=== PATIENT | male | born 1980 | race Caucasian/White ===

== ENCOUNTER 2016-10-04 23:58 | Inpatient (IN) | payer OTHER ==
--- NOTE | ~2016-10-04 | HP ---
Unit #: [id number] #: [id number] Patient: JESUS BRINK [id number] [place] [address] [id number] MR#: [id number] NAME: JESUS BRINK. ROOM: P205 Age: 35 Sex: M Admission Date: 10/04/2016 : 1980 Attending Physician: Octaviano Islas M.D. Admitting Physician: Octaviano Islas M.D. Primary Care Physician: Generic Doctor Not In System HISTORY AND PHYSICAL HISTORY OF PRESENT ILLNESS Jesus is a 35 year old admitted to [address] [place] [address] with depression, increased anxiety and verbalizing wanting to hurt himself. PAST MEDICAL HISTORY Noting significant. PAST SURGICAL HISTORY Nothing reported. ALLERGIES No known drug allergies. SOCIAL HISTORY Smokes an occasional cigar, drinks whiskey frequently but not daily. Admits to using marijuana daily. FAMILY HISTORY Medically noncontributory. REVIEW OF SYSTEMS CONSTITUTIONAL: No fever or chills. HEENT: Denies any sore throat, ear pain or runny nose. CARDIOVASCULAR: Denies chest pain, irregular heart rhythm or palpitations. CHEST: Denies shortness of breath or cough. No hemoptysis. GASTROINTESTINAL: Denies nausea, vomiting, diarrhea or chronic constipation. ENDOCRINE: Denies history of increased thirst or urination. No recent significant weight loss or gain. GENITOURINARY: Denies dysuria, frequency, or hematuria. SKIN: Denies any rashes. HEMATOLOGIC: Denies history of increased bleeding or bruising. MUSCULOSKELETAL: Denies any hot, swollen joints. No generalized muscle pain. NEUROLOGIC: Denies problems with vision or speech. No frequent, severe headaches. No numbness, tingling or weakness in any extremities. Denies loss of bladder or bowel control. CURRENT MEDICATIONS 1. Lexapro 10 mg daily Unit #: [id number] #: [id number] Patient: JESUS BRINK 2. Vistaril 50 mg q.6 h. p.r.n. 3. Milk of Magnesia p.r.n. 4. Maalox p.r.n. 5. Tylenol p.r.n. PHYSICAL EXAMINATION GENERAL: Alert, well-nourished, in no apparent distress. VITAL SIGNS: Blood pressure 126/70, heart rate 64, respirations 16, temperature 98.6. WEIGHT: 200 pounds. HEIGHT: 6'0". SKIN: Warm and dry without rash or lesion. HEENT: Normocephalic. TMs not viewed. Oral and nasal passages clear. Conjunctivae clear. Pupils equal, round and reactive to light and accommodation. Extraocular movements intact. NECK: Supple without lymphadenopathy or thyromegaly. HEART: Regular rate and rhythm without murmur. LUNGS: Clear. ABDOMEN: Soft, nontender. : Not done. EXTREMITIES: No evidence of cyanosis, clubbing or edema. Moves all extremities without focal deficit. NEUROLOGICAL: Grossly within normal limits. Cranial Nerves: II: Visual diggs are intact. III, IV AND : Extraocular movements are intact. Pupils are equal, round and reactive to light. V: Facial sensation is grossly normal. VII: Facial movements and expression are normal. VIII: Auditory acuity grossly intact. IX, X: Uvula is midline. Phonation is normal. XI: Patient shrugs shoulders and turns head normally. XII: Tongue protrudes in the midline. Sensory and Motor Function: Sensory and motor sensation is grossly normal. Motor: moves all extremities well. Coordination: Gait is normal. Deep Tendon Reflexes: Intact. IMPRESSION Psychiatric admission RECOMMENDATIONS PSYCHIATRIC: Per psychiatrist. MEDICAL: I see no contraindications to participating in facility's activities. MEDICAL PROGNOSIS Good. MEDICAL CONDITION Stable. Dictated by... Linda Chang P.A.-C. for Diaz Amor/lindy Unit #: [id number] #: [id number] Patient: JESUS BRINK TD: 10/06/2016 03:32 JOB #: [id number] HISTORY AND PHYSICAL X Linda Chang X HISTORY AND PHYSICAL
--- NOTE | ~2016-10-04 | PN ---
Unit #: [id number] #: [id number] Patient: HAKAN BRINK [id number] [facility] [address] [place] [address] [id number] MR#: [id number] NAME: HAKAN BRINK. ROOM: P205 Age: 35 Sex: M Admission Date: 10/04/2016 : 1980 Attending Physician: Octaviano Islas M.D. Admitting Physician: Octaviano Islas M.D. Primary Care Physician: Generic Doctor Not In System [facility] PROGRESS NOTES DATE 10/06/2016 DISCUSSION The patient is in somewhat brighter spirits today. He exhibits little in the way of signs or symptoms of withdrawal but does complain of poor sleep last evening. He is reporting reduction in suicidal ideation. He is now expressing interest in residential chemical dependence treatment and I will ask a manager social media to him regarding this. Dictated by... Octaviano Islas M.D. CB/julio TD: 10/06/2016 15:23 JOB #: [id number] [facility] PROGRESS NOTES X Octaviano Islas MD PROGRESS NOTE
--- NOTE | ~2016-10-04 | PA ---
Unit #: [id number] #: [id number] Patient: HAKAN BRINK [id number] [facility] [address] [place] [address] [id number] MR#: [id number] NAME: HAKAN BRINK. ROOM: P205 Age: 35 Sex: M Admission Date: 10/04/2016 : 1980 Date of Assessment: 10/05/2016 Attending Physician: Octaviano Islas M.D. Admitting Physician: Octaviano Islas M.D. Primary Care Physician: Generic Doctor Not In System PSYCHIATRIC ASSESSMENT IDENTIFYING INFORMATION The patient is a 35-year-old white male brought to this facility by family members after had threatened suicide yesterday using a firearm. INFORMANT(S) The patient, reliability is fair. CHIEF COMPLAINT None given. HISTORY OF PRESENT ILLNESS The patient is a 35-year-old single white male admitted to the [address] [place] [address] with a history of increasing depression and suicidal ideation and anxiety. The patient reports that he smokes marijuana on a daily basis to address these symptoms. He reports an extensive substance abuse history but now reports that he uses only cannabis "to calm me down." The patient reports multiple stressors including marital discord which has led to a marital separation. 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 The patient denies prior suicidal attempts or gestures. He does report that he spoke to the therapist when his father when the patient was a teenager. He was prescribed Adderall at one point but is currently on no prescribed psychotropic medications. The patient reports no recent charges in sleep or appetite. He does complaining of ongoing dysphoric mood and suicidal thinking when seen today. PAST PSYCHIATRIC HISTORY As above. 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 NONE Allergies ALLERGIES None reported. FAMILY HISTORY Noncontributory Unit #: [id number] #: [id number] Patient: HAKAN BRINK SOCIAL HISTORY The patient is currently separate from his but plans to return to that facility. He does have a history of alcohol dependance as well as cannabis abuse. He last used alcohol approximately one week ago per his report, MENTAL STATUS EXAMINATION At this time reveals the patient to be a well-developed heavily bearded white male appearing his stated age. He is in no apparent physical distress at the time of the examination. He is awake, alert, oriented in all spheres. His mood is mildly dysphoric. His affect constricted. Speech is generally relevant and coherent. There are no gross deficits to memory or cognition noted. Intelligence is judged to be in the average range based on fund of knowledge. The patient is cooperative though out the interview. He is currently reporting positive suicidal ideation. He denies homicidal ideation. He denies any psychotic symptoms. His judgement and insight appear to be intact. ASSETS AND LIABILITIES ASSETS: Motivation for change, supportive family. LIABILITIES: Ongoing cannabis use. DIAGNOSTIC IMPRESSION 1. Major depressive disorder recurrent moderate single episode moderate. 2. Cannabis use disorder. PSYCHIATRIC PLAN/TREATMENT GOALS The patient remains hospitalized for safety and stabilization. We will watch for any signs of alcohol withdrawal and we will begin the patient on Lexapro 10 mg Daily to address depressive symptoms. ESTIMATED LENGTH OF STAY Three to five days with followup to take place through the auspices of community mental health resources in the [facility]. Dictated by... Octaviano Islas M.D. LANEY/lindy TD: 10/06/2016 00:14 JOB #: [id number] PSYCHIATRIC ASSESSMENT X Octaviano Islas MD X PSYCHIATRIC ASSESSMENT
--- NOTE | ~2016-10-04 | DS ---
Unit #: [id number] #: [id number] Patient: HAKAN BRINK [id number] [place] [address] [id number] I MR#: [id number] NAME: HAKAN BRINK. ROOM: [facility] Age: 35 Sex: M Admission Date: 10/04/2016 : 1980 Discharge Date: 10/07/2016 Attending Physician: Octaviano Islas M.D. Primary Care Physician: Generic Doctor Not In System DISCHARGE SUMMARY REASON FOR ADMISSION The patient is a 35-year-old white male, admitted to the [address] [place] [address] for alcohol detox and depression. HOSPITAL COURSE The patient was admitted to the [address] [place] [address] unit and placed on routine detoxification protocol for alcohol. He was begun on Lexapro 10 mg daily to address depressive symptoms, and Vistaril and trazodone were added on a p.r.n. basis for anxiety and sleep respectively. The patient's stay in the hospital was a fairly uneventful one. He had briefly considered residential chemical dependency treatment, but instead decided to attend the intensive outpatient program provided by this facility. He requested discharge on 10/07/2016, and it was so ordered. FINAL DIAGNOSES Alcohol use disorder, dysthymic disorder. DISPOSITION ON DISCHARGE The patient is discharged on the following medications; Lexapro 10 mg daily for depression, trazodone 50 mg at h.s. p.r.n. insomnia, Vistaril 50 mg q.6 hours p.r.n. anxiety. DISCHARGE INSTRUCTIONS No dietary or physical restrictions were placed upon the patient at the time of discharge. FOLLOWUP Followup will take place in the intensive outpatient program provided by this facility. PROGNOSIS The patient's prognosis is considered good. Dictated by... Octaviano Islas M.D. CB/ulysses TD: 10/07/2016 23:07 JOB #: [id number] Unit #: [id number] #: [id number] Patient: HAKAN BRINK DISCHARGE SUMMARY X Octaviano Islas MD X DISCHARGE SUMMARY
[2016-10-05 09:30] LABS: BASOPHIL% 0.8 % (0-2.5); EOSINOPHIL# 0.1 X10e3 (0-0.7); EOSINOPHIL% 2.7 % (0.0-7.0); HEMATOCRIT 42.4 % (38.0-50.0); HEMOGLOBIN 14.6 gm/dL (13.0-16.0); LYMPHOCYTE# 1.9 X10e3 (1.0-3.5); MEAN CELL VOLUME 87.8 FL (83-96); MEAN CORPUSCULAR HEMOGLOBIN 30.2 PG (28-34); MEAN CORPUSCULAR HGB CONC 34.3 g/dL (30-36); MEAN PLATELET VOLUME 8.7 FL (6.5-11.5); MONOCYTE# 0.4 X10e3 (0-1.0); MONOCYTE% 8.9 % (3.0-12.0); NEUTROPHIL# 2.1 X10e3 (1.5-7.1); NEUTROPHIL% 46.6 % (40-75); PLATELET COUNT 240 X10e3 (140-420); RED BLOOD COUNT 4.83 X10e (3.90-5.60); RED CELL DISTRIBUTION WIDTH 12.6 % (11.0-15.5); WHITE BLOOD COUNT 4.5 X10e3 (4.0-10.5)
[2016-10-05 09:34] LABS: DIFF IND NO
[2016-10-05 09:49] LABS: THYROID STIMULATING HORMONE 0.93 uIU/ml (0.34-5.60)
[2016-10-05 09:56] LABS: FREE THYROXIN (T4) 0.84 ng/dL (0.58-1.64)
[2016-10-05 10:05] LABS: ALBUMIN SERUM 4.8 g/dL (3.5-5.0); ALKALINE PHOSPHATASE 49 U/L (32-92); ALT (SGPT) 16 U/L (10-40); AST (SGOT) 20 U/L (10-42); BILIRUBIN,TOTAL 0.9 mg/dL (0.2-2.0); BLOOD UREA NITROGEN 16 mg/dL (9-23); CALCIUM SERUM 9.8 mg/dL (8.4-10.2); CARBON DIOXIDE 25 mmol/L (22-31); CHLORIDE 105 mmol/L (100-111); CREATININE SERUM 0.8 mg/dL (0.6-1.4); GLOM FILT RATE Estimated ABOVE60 mL/min (>60); GLUCOSE FASTING 86 mg/dL (70-110); POTASSIUM 4.7 mmol/L (3.5-5.1); PROTEIN TOTAL SERUM 7.1 g/dL (6.0-8.3); SODIUM 140 mmol/L (135-145)
[2016-10-05 12:51] LABS: URINE APPEARANCE CLEAR; URINE BILIRUBIN NEG (NEG); URINE BLOOD NEG (NEG); URINE COLOR DK YELLOW; URINE GLUCOSE NEG (NEG); URINE KETONE NEG (NEG); URINE LEUKOCYTE ESTERASE NEG (NEG); URINE NITRATE NEG (NEG); URINE PH 5.5 (5-8); URINE PROTEIN NEG (NEG); URINE SPECIFIC GRAVITY 1.034 (1.003-1.035)
[2016-10-05 13:26] LABS: AMPHETAMINE NEG (NEG); BARBITURATES NEG (NEG); BENZODIAZEPINES NEG (NEG); COCAINE NEG (NEG); MARIJUANA POS (NEG); OPIATES NEG (NEG); TRICYCLIC ANTIDEPRESSANTS NEG (NEG); U METHADONE NEG (NEG)
== END 2016-10-07 17:42 | DRG 897 ==
LOC: P2S 23:58 → POF 10-05 13:58 → P2S 10-05 14:03
PROVIDERS: Specialist
PROC: HZ2ZZZZ Detoxification Services for Substance Abuse Treatment (ICD-10-PCS; principal; 2016-10-04)
DX: F10.20 Alcohol dependence, uncomplicated (principal); R45.851 Suicidal ideations; F33.1 Major depressive disorder, recurrent, moderate; F12.20 Cannabis dependence, uncomplicated; F41.9 Anxiety disorder, unspecified; Z72.0 Tobacco use
CPT/HCPCS: 80053; 80307; 81003; 84439; 84443; 85025